=== PATIENT | male | born 1995 | race Hispanic/Latino ===

== ENCOUNTER 2017-12-23 02:45 | Emergency (ER) | payer BC, OTHER ==
[2017-12-23] MEDS ORDERED: DiphenhydrAMINE HCL 50 MG/ML VIAL ONE (03:17)
[2017-12-23] MEDS ORDERED: KETOROLAC TROMETHAMINE 30MG/ML ONE (03:18)
[2017-12-23] MEDS ORDERED: SODIUM CHLORIDE 0.9% 1000ML 1,000 ML IV ONE (03:18)
[2017-12-23] MEDS ORDERED: PROMETHAZINE HCL 25 MG/ML 1ML AMPULE IM ONE (03:18)
== END 2017-12-23 04:32 | disposition home or self-care (01) ==
LOC: EDH 02:45
DX: R51 Headache (principal); J45.909 Unspecified asthma, uncomplicated; Z98.890 Other specified postprocedural states; Z88.8 Allergy status to other drugs, medicaments and biological substances
CPT/HCPCS: 96361; 96365; 96375; 99284; J1200; J1885; J2550; J7030

== ENCOUNTER 2018-02-09 14:16 | Emergency (ER) | payer BC ==
[2018-02-09] MEDS ORDERED: PENICILLIN V POTASSIUM 500 MG TABLET ONE (15:22)
== END 2018-02-09 15:28 | disposition home or self-care (01) ==
LOC: EDH 14:16
DX: K08.89 Other specified disorders of teeth and supporting structures (principal); J45.909 Unspecified asthma, uncomplicated; F41.9 Anxiety disorder, unspecified; Z91.018 Allergy to other foods

== ENCOUNTER 2024-12-31 13:40 | Emergency (ER) | payer BC ==
[~2024-12-31] VITALS: Ht 175.3 cm; Wt 72.6 kg
[2024-12-31 13:58] VITALS: O2SAT 98
[2024-12-31 14:30] LABS: SARS-CoV-2, RNA, NAAT NEGATIVE SARS CoV-2 (NEGATIVE)
[2024-12-31 14:33] LABS: INFLUENZA TYPE A Negative For Type A (NEGATIVE); INFLUENZA TYPE B Negative For Type B (NEGATIVE)
[2024-12-31 14:36] LABS: RAPID GROUP A STREP positive (NEGATIVE)
[2024-12-31] MEDS: cefTRIAXone 1G VIAL IM ONE (15:27)
[2024-12-31] MEDS ORDERED: AMOX1TAB16 PO (15:32)
--- NOTE | 2024-12-31 15:34 | ERN ---
General Chief Complaint: Fever Stated Complaint: FEVER Time Seen by MD: 13:45 Time Seen by Midlevel: 13:45 Source: patient History of Present Illness Initial Comments Patient is a 29-year-old male presenting to the emergency department for evaluation of fever that has been ongoing for the last 2-3 days. Patient was already seen by his primary care doctor and started on azithromycin for presumed bacterial infection. At that time the patient was tested for influenza and COVID but was negative. He continues with fever so he decided to report to the ER for further evaluation. He does report some congestion. Denies any other symptoms Allergies: Coded Allergies: No Known Allergies (Unverified Allergy, Unknown, 12/31/24) Past Medical History Past Medical History: No Pertinent History Past Surgical History: None ROS Dictation CONSTITUTIONAL: Negative except for HPI HEAD/FACE: Negative except for HPI EENT: Negative except for HPI RESPIRATORY: Negative except for HPI GASTROINTESTINAL/ABDOMINAL: Negative except for HPI GENITOURINARY: Negative except for HPI MUSCULOSKELETAL: Negative except for HPI INTEGUMENTARY: Negative except for HPI NEUROLOGICAL/PSYCH: Negative except for HPI HEMATOLOGIC/LYMPHATIC: Negative except for HPI All Systems Negative, Except as noted above. 13 point review of systems assessed and all negative except for above. Physical Exam Physical Exam Dictation Vital Signs reviewed General Appearance: Alert, oriented x 3, no acute distress, well developed, nourished. Head and Face: non-traumatic. Eyes: PERRL, pink conjunctivas, eyelid no trauma, anterior chamber with arcus senilis. Ears: Pinnas intact and no signs of trauma or erythema ear canals clear and no discharge TM no erythema Nose: No discharge, no bleeding. Oropharynx: Mouth normal, tongue pink, pharynx clear,no erythema, tonsils no exudates, no abscesses noted, mucous membrane moist Neck: Supple, non-tender, no thyromegaly, no masses, no JVD, no bruits Breast:Deferred Chest:No tenderness, no crepitus, no paradoxical movement, no retractions Lungs:Clear, well-ventilated, symmetric, no rales, no wheezing, no rhonchi, no stridor, good breath sounds bilaterally Heart: Regular rate, regular rhythm, no murmur, no gallops Vascular: no peripheral edema, Abdomen: Soft, positive bowel sounds, nondistended, no guarding, nontender, no rebound, no masses no hepatomegaly, no splenomegaly, no Gama's sign, no hernias. Rectal: Deferred Genital: Deferred Neurological: Normal speech, motor function intact, sensory function intact Musculoskeletal: Neck nontender, full range of motion, back nontender, full range of motion, Extremities: nontender, full range of motion Skin: Color pink, dry, no turgor, no rash, no lacerations, no abrasions, no contusions. Lymphatic: Deferred Results Laboratory and Microbiology Lab and Micro Result Laboratory Tests Test 12/31/24 13:35 Influenza Type A Antigen Negative For Type A Influenza Type B Antigen Negative For Type B SARS-CoV-2, RNA, NAAT NEGATIVE SARS CoV-2 Group A Streptococcus Rapid positive (NEGATIVE) *A Labs Reviewed?: Yes MDM MDM: Differential diagnosis: Viral illness, upper respiratory infection, strep There are no social concerns with this patient. Prescription drug management Prescriptions will include: Augmentin Medical management and examination interpretation discussions were had by me with other qualified healthcare professionals as indicated for the patient's care. ED Course Orders Procedure Category Date Status Time Covid Rna Naat LAB 12/31/24 Complete 13:53 Influenza Type A & B, LAB 12/31/24 Complete Rapid 13:53 Rapid (Group A Strep) LAB 12/31/24 Complete 13:53 Ceftriaxone 1g Vial PHA 12/31/24 Complete (Rocephine 1g Inj) 15:00 Current Medications Medications (Trade) Dose Ordered Sig/Torie Route PRN Reason Start Time Stop Time Status Last Admin Dose Admin Ceftriaxone Sodium (ROCEphine 1G INJ) 1 gm ONCE ONCE IM 12/31/24 15:00 12/31/24 15:01 DC Vital Signs Date Time Temp Pulse Resp B/P (MAP) Pulse Ox O2 Delivery O2 Flow Rate FiO2 12/31/24 13:58 101.1 98 20 122/83 98 Room Air* 0 21 12/31/24 13:43 101.1 98 20 122/83 Room Air DX & DISP Disposition: Discharge Departure Impression: Primary Impression: Strep pharyngitis Condition: Stable Scripts Amoxicillin/Potassium Clav (Amox Tr-K Clv 875-125 mg Tab) 875 Mg-125 Mg Tablet 1 EACH PO BID for 10 Days, #20 TAB 0 Refills Prov: ADAM PEREZ 12/31/24 Additional Instructions: You have tested positive for strep. I have given you a prescription for Augmentin which should help improve your symptoms over the next 2-3 days. Referrals: SELF,REFERRAL (PCP) Time of Disposition: 15:31 I have reviewed the case, and I agree with, Diagnosis and Plan I performed the substantive portion of the visit. I have reviewed and personally made and approve the management plan that is documented in the note by myself or the PILY. I acknowledge for responsibility for the patient's management plan. ADAM PEREZ Dec 31, 2024 15:34
[2024-12-31] MEDS: acetaMINOPHEN 500 MG TABLET PO ONE (15:46)
[2024-12-31 15:48] VITALS: BP 127/78; PULSE 92; RESP 20; TEMP 99.4
[2024-12-31] MEDS ORDERED: METH4TAB3 PO (15:52)
== END 2024-12-31 15:52 | disposition home or self-care (01) ==
LOC: EDH 13:40
DX: J02.0 Streptococcal pharyngitis (principal); Z20.822 Contact with and (suspected) exposure to COVID-19
CPT/HCPCS: 87635; 87804; 87880; 99283; J0696